=== PATIENT | male | born 1945 | race African-American/Black ===

== ENCOUNTER → 2016-11-19 | Outpatient (CLI) | payer MEDICARE, MEDICAID ==
[~2016-11-19] MED LIST: ACET-2321 PO; AMLO5TAB2 PO; CHOL200047 PO; CLOP75TA PO; DEXT1DRO7 BOTH EYES; DOCU-118 PO; FINA5TAB42 PO; FURO40TA5 PO; INSU100I3 SQ; INSU100V12 SQ; LEVE500T26 PO; LINA5TAB PO; LISI-625 PO; MAGN400T25 PO; MELO7.5T12 PO; METO50TA78 PO; ORPH100T2 PO; POTA10CA37 PO; ROSU40TA PO; TAMS0.4C20 PO
--- NOTE | 2016-11-19 09:29 | DI ---
Indication: ITS.REASON: N28.89 RENAL MASS PROCEDURE: CT ABDOMEN W/O CONTRAST: Encounter: Subsequent Comparison: CT abdomen dated May 19, 2016 Technique: Axial CT images were performed through the abdomen without intravenous contrast. Coronal and sagittal two-dimensional reformats. Automated Exposure Control and Iterative Reconstruction dose reducing techniques were utilized. Findings: The lung bases are clear. The unenhanced liver, gallbladder, spleen, fatty replaced pancreas and adrenal glands are within normal limits. Unchanged left renal cysts. Stable peripherally partially calcified superior pole right renal cyst. Complex cystic and solid lesion arising from the lower pole of the right kidney is redemonstrated measuring 9.9 x 9.6 cm in size, stable from the prior measurements when measured in a similar fashion. No abdominal adenopathy. Colonic diverticulosis without acute diverticulitis. Impression: Stable appearance of the complex cystic and solid lesion arising from the lower pole of the right kidney. .
== END ==
LOC: IMA 08:09
PROVIDERS: ATTEND Specialist
DX: N28.89 Other specified disorders of kidney and ureter (principal)